=== PATIENT | male | born 1960 | race Caucasian/White ===

== ENCOUNTER 2016-11-02 13:26 | Emergency (ER) | payer MEDICARE, MEDICAID | END 2016-11-02 15:43 | disposition home or self-care (01) | DX: L03.113 Cellulitis of right upper limb (principal); E11.9 Type 2 diabetes mellitus without complications; I10 Essential (primary) hypertension; B20 Human immunodeficiency virus [HIV] disease; Z79.4 Long term (current) use of insulin; F17.200 Nicotine dependence, unspecified, uncomplicated ==

== ENCOUNTER 2021-02-18 13:00 | Outpatient (CLI) | payer MEDICARE, MEDICAID | END 2021-02-18 13:01 | disposition home or self-care (01) | LOC: LAB 13:00 | PROVIDERS: ATTEND Family Medicine | DX: Z53.9 Procedure and treatment not carried out, unspecified reason (principal); N18.31 Chronic kidney disease, stage 3a ==

== ENCOUNTER 2021-02-21 11:30 | Outpatient (CLI) | payer MEDICARE, MEDICAID ==
[2021-02-21 11:56] LABS: BASOPHILS # (AUTO) 0.1 10^3/uL (0.0-0.1); BASOPHILS % (AUTO) 1.1 %; EOSINOPHILS # (AUTO) 0.1 10^3/uL (0.0-0.7); EOSINOPHILS % (AUTO) 1.9 %; HCT - HEMATOCRIT 44.5 % (42.0-52.0); HGB - HEMOGLOBIN 14.9 g/dL (14.0-18.0); LYMPHOCYTES % (AUTO) 35.6 %; MEAN CORPUSCULAR HEMOGLOBIN 29.3 pg (27.0-31.0); MEAN CORPUSCULAR HGB CONC 33.5 g/dL (32.0-36.0); MEAN CORPUSCULAR VOLUME 87.6 fL (80.0-94.0); MEAN PLATELET VOLUME 9.4 fL (7.4-11.4); MONOCYTES # (AUTO) 0.6 10^3/uL (0.0-1.0); MONOCYTES % (AUTO) 10.2 %; NEUTROPHILS # (AUTO) 2.9 10^3/uL (1.5-6.6); PLT - PLATELET COUNT 195 10^3/uL (130-450); RED BLOOD COUNT 5.08 10^6/uL (4.70-6.10); RED CELL DISTRIBUTION WIDTH 13.2 % (12.0-15.0); WHITE BLOOD COUNT 5.7 x10^3/uL (4.8-10.8)
[2021-02-21 12:01] LABS: BILIRUBIN,URINE NEGATIVE (NEGATIVE); GLUCOSE, URINE (UA) NEGATIVE (NEGATIVE); KETONES,URINE (UA) NEGATIVE (NEGATIVE); LEUKOCYTE ESTERASE, URINE NEGATIVE (NEGATIVE); NITRITE,URINE NEGATIVE (NEGATIVE); OCCULT BLOOD,URINE NEGATIVE (NEGATIVE); PROTEIN,URINE NEGATIVE (NEGATIVE); UROBILINOGEN,URINE 0.2 (NORMAL) E.U./dL (NORMAL)
[2021-02-21 12:06] LABS: CLARITY,URINE CLEAR (CLEAR)
[2021-02-21 12:16] LABS: CREATININE,URINE 59.9 mg/dL; MICROALBUMIN,URINE 0.6 mg/dL (0-300.0)
[2021-02-21 12:18] LABS: ALBUMIN 4.5 g/dL (3.2-5.5); ALBUMIN/GLOBULIN RATIO 1.5 (1.0-2.2); ALKALINE PHOSPHATASE 75 IU/L (42-121); ALT ALANINE AMINOTRANSFERASE 48 IU/L (10-60); AST ASPARTATE AMINOTRANSFERASE 50 IU/L (10-42); BILIRUBIN,TOTAL 1.1 mg/dL (0.2-1.0); BUN - BLOOD UREA NITROGEN 26 mg/dL (6-20); CALCIUM 9.2 mg/dL (8.5-10.3); CARBON DIOXIDE - CO2 26 mmol/L (21-32); CHLORIDE 104 mmol/L (101-111); CHOLESTEROL 125 mg/dL; CREATININE 1.3 mg/dL (0.6-1.2); GFR - MDRD 57 (>89); GLUCOSE 96 mg/dL (70-100); HDL CHOLESTEROL 41 mg/dL; LDL CHOLESTEROL,CALCULATED 30 mg/dL; LDL/HDL RATIO 0.7 (<3.6); POTASSIUM 4.1 mmol/L (3.5-5.0); SODIUM 138 mmol/L (135-145); TOTAL PROTEIN 7.5 g/dL (6.7-8.2); TRIGLYCERIDES 272 mg/dL; VLDL CHOLESTEROL 54 mg/dL
[2021-02-21 12:35] LABS: ESTIMATED AVERAGE GLUCOSE 128 mg/dL (70-100); HEMOGLOBIN A1c% 6.1 % (4.27-6.07)
[2021-02-25 15:56] LABS: HIV AG/AB 4TH GEN REPEATEDLY REACTIVE (NON-REACTIVE)
== END 2021-02-21 11:31 | disposition home or self-care (01) ==
LOC: LAB 11:30
PROVIDERS: ATTEND Internal Medicine
DX: E11.40 Type 2 diabetes mellitus with diabetic neuropathy, unspecified (principal); E11.22 Type 2 diabetes mellitus with diabetic chronic kidney disease; I12.9 Hypertensive chronic kidney disease with stage 1 through stage 4 chronic kidney disease, or unspecified chronic kidney disease; N18.31 Chronic kidney disease, stage 3a; Z79.4 Long term (current) use of insulin; B20 Human immunodeficiency virus [HIV] disease
CPT/HCPCS: 36415; 80053; 80061; 81001; 81003; 82043; 82570; 83036; 83721; 85025; 86592; 87086; 87389

== ENCOUNTER 2021-02-21 11:41 | Outpatient (CLI) | payer MEDICARE, MEDICAID ==
--- NOTE | 2021-02-21 13:13 | XRAY Report ---
PROCEDURE: Elbow 3 View RT INDICATIONS: INJURY OF RIGHT ELBOW TECHNIQUE: 3 views of the elbow were acquired. COMPARISON: None FINDINGS: Bones: No fractures or dislocations. No suspicious bony lesions. Soft tissues: No elbow joint effusion. No suspicious soft tissue calcifications. IMPRESSION: No elbow fracture or dislocation. No significant joint effusion. Reviewed by: Mannie Santiago MD on 02/21/2021 1:12 PM PDT Approved by: Mannie Santiago MD on 02/21/2021 1:12 PM PDT Station ID: [id number]
== END 2021-02-21 11:42 | disposition home or self-care (01) ==
LOC: DI 11:41
PROVIDERS: ATTEND Internal Medicine
DX: S59.901A Unspecified injury of right elbow, initial encounter (principal); E11.40 Type 2 diabetes mellitus with diabetic neuropathy, unspecified; E11.22 Type 2 diabetes mellitus with diabetic chronic kidney disease; I12.9 Hypertensive chronic kidney disease with stage 1 through stage 4 chronic kidney disease, or unspecified chronic kidney disease; N18.31 Chronic kidney disease, stage 3a; Z79.4 Long term (current) use of insulin; B20 Human immunodeficiency virus [HIV] disease
CPT/HCPCS: 36415; 73080; 80053; 80061; 81003; 82043; 82570; 83036; 85025; 86592; 86701; 86702; G0475; 81001; 83721; 87086; 87389

== ENCOUNTER 2021-03-03 13:26 | Outpatient (CLI) | payer MEDICARE, MEDICAID | END 2021-03-03 13:27 | disposition home or self-care (01) | LOC: LAB 13:26 | PROVIDERS: ATTEND Internal Medicine | DX: B20 Human immunodeficiency virus [HIV] disease (principal) | CPT/HCPCS: 36415; 81599; 87536 ==

== ENCOUNTER 2021-03-25 09:57 | Outpatient (CLI) | payer MEDICARE, MEDICAID | END 2021-03-25 09:58 | disposition home or self-care (01) | LOC: LAB 09:57 | PROVIDERS: ATTEND Internal Medicine | DX: N52.9 Male erectile dysfunction, unspecified (principal) | CPT/HCPCS: 36415; 81599; 84402; 84403 ==

== ENCOUNTER 2022-06-24 07:50 | Outpatient (CLI) | payer MEDICARE, MEDICAID ==
--- NOTE | 2022-06-24 13:24 | Ultrasound Report ---
PROCEDURE: Duplex Ext Veins Left INDICATIONS: LEFT LOWER EXTREMITY EDEMA TECHNIQUE: Real-time imaging, as well as color and pulse Doppler interrogation, were performed of the lower extr emity deep veins from the inguinal ligament to the popliteal fossa. COMPARISON: None. FINDINGS: The deep veins are normally compressible, and free of intraluminal thrombus. Color and pu lse Doppler demonstrate normal phasic intraluminal flow. There is normal augmentation response to di stal compression maneuver. Patient-indicated area of concern corresponds to the tibialis anterior ten don. IMPRESSION: 1.No sonographic evidence of deep venous thrombosis in the left lower extremity. 2.Patient-indicated area of concern corresponds to the tibialis anterior tendon. Reviewed by: Isacc Chaidez MD on 06/24/2022 1:23 PM PDT Approved by: Isacc Chaidez MD on 06/24/2022 1:23 PM PDT Station ID: [id number]
== END 2022-06-24 07:51 | disposition home or self-care (01) ==
LOC: DI 07:50
PROVIDERS: ATTEND Internal Medicine
DX: R60.0 Localized edema (principal)

== ENCOUNTER 2023-08-06 07:10 | Emergency (ER) | payer MEDICARE, MEDICAID ==
--- NOTE | 2023-08-06 07:31 | ED Physician Documentation ---
PD HPI SKIN - Stated complaint Stated Complaint: BILAT LEG/ARM LUMPS - Chief complaint Chief Complaint: Wound - History obtained from History obtained from: Patient - History of Present Illness Timing - onset: How many days ago (few) Timing - duration: Days (few) Timing - details: Gradual onset, Still present Location: Other (dorsal aspects of arms and legs, gradual developent of multiple firm mildly tnder discrete lumps.) Quality / character: Itchy (he did states some itchiness to the areas.), Painful Associated symptoms: No: Fever, Myalgias, Joint pain, Facial swelling, Dyspnea Contributing factors: Exposed to medication (Augmentin and Doxycycline.) Similar symptoms before: Has not had sx before Recently seen: Emergency Dept (12 days ago for cellulitis right lower leg, on abx, and had US at the time that was negative for DVT.) Review of Systems Constitutional: denies: Fever, Chills Throat: denies: Sore throat Respiratory: denies: Dyspnea, Wheezing GI: denies: Abdominal Pain, Nausea, Vomiting, Diarrhea Musculoskeletal: denies: Joint pain PD PAST MEDICAL HISTORY - Past Medical History Cardiovascular: Hypertension Endocrine/Autoimmune: Type 2 diabetes GI: GERD : Kidney stones - Past Surgical History Past Surgical History: Yes General: Cholecystectomy HEENT: Other - Present Medications Home Medications: Ambulatory Orders Medication Instructions Recorded Confirmed buPROPion [Wellbutrin Sr] 150 mg PO DAILY 06/01/14 02/27/15 busPIRone [Buspar] 5 mg PO BID 02/27/15 02/27/15 Amox/Clav 875/125 [Augmentin] 1 each PO Q12H #14 tablet 11/02/16 Insulin Aspart [NovoLOG] 0 units SUBQ Q4HR 11/02/16 11/02/16 Insulin Glargine [Lantus] 80 unit SUBQ DAILY 11/02/16 11/02/16 Amox/Clav 875/125 [Augmentin] 1 tab PO Q12H #20 tablet 07/24/23 Doxycycline Monohydrate 100 mg PO BID #20 cap 07/24/23 cephALEXin [Keflex] 500 mg PO TID #20 cap 08/06/23 - Allergies Allergies/Adverse Reactions: Allergies Allergy/AdvReac Type Severity Reaction Status Date / Time No Known Drug Allergies Allergy Verified 11/02/16 13:37 - Social History Does the pt smoke?: Yes Smoking Status: Current every day smoker Does the pt drink ETOH?: Yes Does the pt have substance abuse?: No - Immunizations Immunizations are current?: Yes - POLST Patient has POLST: No PD ED PE NORMAL - Vitals Vital signs reviewed: Yes - General General: Alert and oriented X 3, No acute distress, Well developed/nourished - HEENT HEENT: Pharynx benign - Abdomen Abdomen: Soft, Non tender - Derm Derm: Normal color, Warm and dry, Other (right lower leg with redness and swelling anteriomedial mainly without skin ulcerations nor drainage. presumed still cellulitis. ) - Extremities Extremities: Other (The patient has slightly tender 1 to 2 cm demarcated subcutaneous firm areas without fluctuance. No overlying redness nor skin lesions. They are on the dorsal aspect of both forearms and thighs and shins. None on the volar aspects. Bedside ultrasound showed them to be fatty tissue, no fluid/node) Results - Vitals Vitals: Vital Signs - 24 hr 08/06/23 08/06/23 07:20 08:53 Temperature 36.7 C 36.7 C Heart Rate 88 79 Respiratory 16 17 Rate Blood Pressure 144/77 H 144/83 H O2 Saturation 99 98 Oxygen O2 Source Room air - Labs Labs: Laboratory Tests 08/06/23 08/06/23 08/06/23 09:01 09:01 09:01 WBC 9.8 RBC 5.33 Hgb 15.0 Hct 46.4 MCV 87.1 MCH 28.1 MCHC 32.3 RDW 13.5 Plt Count 287 MPV 9.1 Neut # (Auto) 6.4 Lymph # (Auto) 2.3 [place] # (Auto) 0.8 Eos # (Auto) 0.2 Baso # (Auto) 0.1 Absolute Nucleated RBC 0.00 Nucleated RBC % 0.0 ESR 6 Sodium Potassium Chloride Carbon Dioxide Anion Gap BUN Creatinine Estimated GFR (MDRD) Glucose Calcium Rheumatoid Factor NEGATIVE 08/06/23 09:01 WBC RBC Hgb Hct MCV MCH MCHC RDW Plt Count MPV Neut # (Auto) Lymph # (Auto) [place] # (Auto) Eos # (Auto) Baso # (Auto) Absolute Nucleated RBC Nucleated RBC % ESR Sodium 138 Potassium 4.2 Chloride 105 Carbon Dioxide 24 Anion Gap 9.0 BUN 15 Creatinine 1.2 Estimated GFR (MDRD) 62 L Glucose 163 H Calcium 9.4 Rheumatoid Factor PD Medical Decision Making - ED course Complexity details: reviewed results (initial RF is negative, and ESR is only 6. CBC is good. Lupus tests sendout and are pending. ) ED course: The patient has developed tender swollen lumps under the skin over the last couple of days. He had been seen and treated for right lower leg cellulitis on 07/24/2023 which was 12 days ago. He had no areas of drainage and no firm areas at that time. He had swelling in redness of the lower leg on the right side. He had an ultrasound done that was negative. He was treated for cellulitis with both doxycycline and Augmentin twice daily for 10 days. He finished them 2 days ago. Prior to finishing those he had had some improvement in the redness of the right lower leg but not resolution. He also had started with some areas of tenderness in the forearms that have increased. He has now multiple areas of lumpy tenderness on the dorsal aspects of both forearms and thighs. None on the trunk. No redness in those areas. No open sores or drainage. He states he is feeling okay otherwise without any fevers, chills, joint aches, sore throat. The areas are tender nodule feeling under the skin that are freely movable from the muscle underneath. There are none on the volar aspects. No redness overlying and no open sores. He does not have any inguinal nor axillary nor cervical adenopathy. Throat is without any redness nor exudate. The right lower leg still shows redness along the anterior and mainly medial aspects without any sores or pustules. No drainage. It is moderately red and still consistent with cellulitis. Its not clear the reason for the nodules on the extremities. He has not had strep throat. I referenced up-to-date and there is no association of rheumatic fever with skin strep infections such as cellulitis. The medications antibiotics he was taking could both have potential angioedema or allergic reactions but he has no swelling in the lips tongue or throat. This would be an unusual presentation of angioedema that I have not really seen before. Otherwise referencing up-to-date, an illness or such could precipitate an underlying autoimmune process such as rheumatoid or lupus and the nodularity could be associated with that. I did ultrasound several of the spots and they are just light lipomatous without any fluid collection. They do not appear pustules nor lymph nodes. I did order some blood test to screen for autoimmune disorders such as rheumatoid and lupus. More likely is a variant angioedema type reaction presumably to 1 or both of the antibiotics. Since he still has a cellulitis despite the antibiotics, I would not continue either of them but change perhaps to cephalexin. This would look more like a strep type cellulitis rather than staph. Departure - Departure Disposition: 01 Home, Self Care Clinical Impression: Subcutaneous nodules, generalized, Cellulitis of lower leg Condition: Stable Record reviewed to determine appropriate education?: Yes Instructions: ED Infec Skin Cellulitis Follow-Up: ONI RAMIREZ MD [Primary Care Provider] - Prescriptions: cephALEXin [Keflex] 500 mg PO TID #20 cap Comments: The timing of the nodule development related to your skin infection on the leg and also the antibiotics makes it most likely to be either a immune reaction or manifestation related to the cellulitis or possibly an allergic reaction (very atypical) to one of the antibiotics. Since you are finished with the antibiotics, then 1 would anticipate this resolving slowly over the next several days to week or so. Your leg redness and cellulitis has not completely resolved so I would try a different antibiotic called cephalexin 3 times daily for a week and see if that improves the leg redness. The redness in the leg along with the nodules could potentially be a manifestation of an autoimmune process such as lupus or rheumatoid. I did order some blood test to evaluate for these. They are send outs so will not result for a day or 2 likely. We will call you with the results as they come in. You can also follow-up with the results either having your primary care office track them or you can look them up through the patient portal. Recheck or follow-up if you are having development of more symptoms such as fever or rash or lymph nodes which would be classically more in the groin or armpit areas. On ultrasound these appear to be fatty tissue inflammation and not lymph nodes nor abscesses so would not relate to spreading of infection per se and would not correlate with like cat scratch fever etc. I sent your prescription to the [facility] pharmacy. Forms: PCP List Discharge Date/Time: 08/06/23 09:03
[2023-08-06] MEDS ORDERED: cephALEXin 250 MG CAPSULE PO STA (08:28)
[2023-08-06 08:55] VITALS: BP 144/83; O2SAT 98
[2023-08-06 09:08] LABS: BASOPHILS # (AUTO) 0.1 10^3/uL (0.0-0.1); EOSINOPHILS # (AUTO) 0.2 10^3/uL (0.0-0.7); EOSINOPHILS % (AUTO) 1.9 %; HCT - HEMATOCRIT 46.4 % (42.0-52.0); LYMPHOCYTES # (AUTO) 2.3 10^3/uL (1.5-3.5); LYMPHOCYTES % (AUTO) 23.5 %; MEAN CORPUSCULAR HEMOGLOBIN 28.1 pg (27.0-31.0); MEAN CORPUSCULAR HGB CONC 32.3 g/dL (32.0-36.0); MEAN CORPUSCULAR VOLUME 87.1 fL (80.0-94.0); MEAN PLATELET VOLUME 9.1 fL (7.4-11.4); MONOCYTES # (AUTO) 0.8 10^3/uL (0.0-1.0); MONOCYTES % (AUTO) 8.2 %; NEUTROPHILS # (AUTO) 6.4 10^3/uL (1.5-6.6); NEUTROPHILS % (AUTO) 65.2 %; PLT - PLATELET COUNT 287 10^3/uL (130-450); RED BLOOD COUNT 5.33 10^6/uL (4.70-6.10); RED CELL DISTRIBUTION WIDTH 13.5 % (12.0-15.0); WHITE BLOOD COUNT 9.8 x10^3/uL (4.8-10.8)
[2023-08-06 09:20] LABS: CALCIUM 9.4 mg/dL (8.5-10.3); CREATININE 1.2 mg/dL (0.6-1.3); POTASSIUM 4.2 mmol/L (3.5-4.5)
[2023-08-06 11:37] LABS: RHEUMATOID FACTOR NEGATIVE (Negative)
[2023-08-07 19:07] LABS: ANTI-DNA (DS) AB QN 1 IU/mL (0-9); CENTROMERE B ANTIBODIES <0.2 AI (0.0-0.9); CHROMATIN ANTIBODIES <0.2 AI (0.0-0.9); JO-1 AB <0.2 AI (0.0-0.9); RIBOSOMAL P ANTIBODIES <0.2 AI (0.0-0.9); RNP ANTIBODIES <0.2 AI (0.0-0.9); SCLERODERMA-70 ANTIBODIES <0.2 AI (0.0-0.9); SJOGREN'S ANTI-SS-A <0.2 AI (0.0-0.9); SJOGREN'S ANTI-SS-B <0.2 AI (0.0-0.9); SMITH ANTIBODIES <0.2 AI (0.0-0.9); SMITH/RNP ANTIBODIES <0.2 AI (0.0-0.9)
== END 2023-08-06 09:03 | disposition home or self-care (01) ==
LOC: ED 07:10
DX: R22.33 Localized swelling, mass and lump, upper limb, bilateral (principal); R22.43 Localized swelling, mass and lump, lower limb, bilateral; L03.115 Cellulitis of right lower limb; F17.200 Nicotine dependence, unspecified, uncomplicated
CPT/HCPCS: 36415; 80048; 83516; 85025; 85651; 86060; 86225; 86235; 86430; 99283; 99284; A9270

== ENCOUNTER 2023-11-25 05:45 | Day surgery (SDC) | payer MEDICARE, MEDICAID ==
[2023-11-25] MEDS ORDERED: PHENYLEPHRINE 2.5% OPHTH 2 ML DROPS ONE (06:08)
[2023-11-25] MEDS ORDERED: KETOROLAC 0.45% OPHTH DROPS ONE (06:08)
[2023-11-25] MEDS ORDERED: PROPARACAINE 0.5% OPHTH DROPS 15 ML ONE (06:09)
[2023-11-25] MEDS: LACTATED RINGERS 1,000 ML IV ONE (06:20)
[2023-11-25] MEDS: CYCLOPENTOLATE 1% OPHTH DROPS 2 ML RIGHTEYE ONE (06:45)
[2023-11-25] MEDS: PHENYLEPHRINE 2.5% OPHTH 2 ML DROPS RIGHTEYE ONE (06:45)
[2023-11-25] MEDS: PHENYLEPHRINE 2.5% OPHTH 2 ML DROPS LEFTEYE ONE (06:45)
[2023-11-25] MEDS: KETOROLAC 0.45% OPHTH DROPS RIGHTEYE ONE (06:45)
[2023-11-25] MEDS: CYCLOPENTOLATE 1% OPHTH DROPS 2 ML LEFTEYE ONE (06:45)
[2023-11-25] MEDS ORDERED: BRIMONIDINE 0.2% OPHTH DROPS 5 ML ONE (06:55)
[2023-11-25] MEDS ORDERED: TIMOLOL 0.5% OPHTH DROPS ONE (06:55)
[2023-11-25] MEDS ORDERED: EPINEPHrine 1 MG/ML AMP ONE (06:55)
[2023-11-25] MEDS ORDERED: TRIAMCIN/MOXIFLOX OPHTHALMIC 0.6 ML VIAL IO ONE (06:55)
[2023-11-25] MEDS ORDERED: BSS/LIDOCAINE/EPINEPHRINE 1 ML VIAL ONE (06:56)
--- NOTE | 2023-11-25 07:11 | ANESTHESIA ---
Pre-Anesthesia VS, & Labs - Diagnosis right senile cataract - Procedure right cataract extraction with IOL Vital Signs: Temp Pulse Resp BP Pulse Ox O2 Flow Rate 37.0 C 82 14 145/80 H 99 11/25/23 06:20 11/25/23 06:20 11/25/23 06:20 11/25/23 06:20 11/25/23 06:20 Height: 6 ft Weight (kg): 94.1 kg Body Mass Index: 28.1 BMI Classification: Overweight - NPO >8 hours - Lab Results Current Lab Results: Laboratory Tests 11/25/23 06:34: POC Whole Bld Glucose 207 H Home Medications and Allergies buPROPion [Wellbutrin Sr] 150 mg PO DAILY 06/01/14 busPIRone [Buspar] 5 mg PO BID 02/27/15 Insulin Aspart [NovoLOG] 0 units SUBQ Q4HR 11/02/16 Insulin Glargine [Lantus] 80 unit SUBQ DAILY 11/02/16 Allergies/Adverse Reactions: Allergies Allergy/AdvReac Type Severity Reaction Status Date / Time No Known Drug Allergies Allergy Verified 11/02/16 13:37 Anes History & Medical History - Anesthetic History Anesthesia Complications: reports: No previous complications - Medical History Cardiovascular: reports: None Pulmonary: reports: None Gastrointestinal: reports: Colon polyps, Cholelithiasis Urinary: reports: Other Musculoskeletal: reports: Osteoarthritis Endocrine/Autoimmune: reports: Type 2 diabetes Blood Disorders: reports: HIV/AIDS Skin: reports: None Smoking Status: Former smoker - Surgical History General: reports: Cholecystectomy, Colonoscopy Eyes Ears Nose Throat (EENT): reports: Other Exam General: Alert, Oriented x3 Dental: WNL Mouth Opening: Greater than 4 Fingerbreadths Neck Mobility: Normal Mallampati classification: III Respiratory: Lungs clear Cardiovascular: Regular rate Plan Anesthesia Type: MAC Consent for Procedure(s) Verified and Reviewed: Yes Code Status: Attempt Resuscitation ASA classification: 3-Severe systemic disease Is this case an emergency?: No
[2023-11-25] MEDS ORDERED: MIDAZOLAM 2 MG/2 ML VIAL ONE (07:17)
[2023-11-25] MEDS ORDERED: fentaNYL 100 MCG/2 ML VIAL ONE (07:25)
[2023-11-25] MEDS: BRIMONIDINE 0.2% OPHTH DROPS 5 ML OPTH ONE (07:27)
[2023-11-25] MEDS: VANCOMYCIN OPHTH (TOPICAL) 10 MG/ML SYRINGE TOP ONE (07:28)
[2023-11-25] MEDS: TRIAMCIN/MOXIFLOX OPHTHALMIC 0.6 ML VIAL IO ONE (07:28)
[2023-11-25] MEDS: PROPARACAINE 0.5% OPHTH DROPS 15 ML EACHEYE ONE (07:28)
[2023-11-25] MEDS: BSS/LIDOCAINE/EPINEPHRINE 1 ML SYRINGE IO ONE (07:28)
[2023-11-25] MEDS: TIMOLOL 0.5% OPHTH DROPS OPTH ONE (07:28)
[2023-11-25] MEDS: EPINEPHrine 1 MG/ML AMP IR ONE (07:28)
[2023-11-25] MEDS: PROPARACAINE 0.5% OPHTH DROPS 15 ML LEFTEYE ONE (07:41)
[2023-11-25] MEDS: PROPARACAINE 0.5% OPHTH DROPS 15 ML RIGHTEYE ONE (07:41)
[2023-11-25] MEDS: LACTATED RINGERS 500 ML IV ONE (07:45)
[2023-11-25 07:48] VITALS: O2SAT 98
--- NOTE | 2023-11-25 07:54 | OPERATIVE REPORT ---
Operative Report - Other Other Information/Narrative: Date of Surgery: 11/25/23 Preop Dx: Visually significant cataract right eye. This was the first cataract surgery. Postop Dx: Same Procedure: Phacoemulsification with posterior chamber intraocular lens implant right eye Surgeon: Dr. Chapin Angela Anesthesia: Monitored anesthesia care Complications: None Operative Indications: This is a 63-year-old M with progressive vision loss in the right eye due to 2+ nuclear sclerotic and 2+ posterior subcapsular cataract. Best corrected visual acuity was 20/40 with glare to 20/70 vision in the right eye. Indications for surgery were: - Overall decrease in vision - Difficulty seeing words on a computer screen - Difficulty reading - Difficulty seeing words, closed captions, or game scores on TV - Difficulty seeing street signs - Difficulty driving in low light or at night - Difficulty driving at night because of headlights from other vehicles - Difficulty with glare or bright lights in any situation The patient was consented at length concerning the risks and benefits of cataract surgery after which the patient expressed a desire to proceed with surgery. Operative Procedure: The patient was taken into OR#3 and placed under monitored anesthesia care. A surgical time-out was conducted confirming correct patient, correct procedure, and correct surgical site. The patient was given topical anesthesia and then prepped and draped in the usual sterile fashion. The eye was entered at the 6 and 3 oclock positions. Intracameral Shugarcaine was injected into the anterior chamber followed by a dispersive viscoelastic. A continuous-tear curvilinear capsulorhexis was performed. The nucleus was hydrodissected and phacoemulsified. The cortex was evacuated using automated infusion and aspiration. A cohesive viscoelastic was injected into the capsular bag and a 23.5 diopter intraocular lens was inserted into the bag. Infusion and aspiration were used to evacuate the viscoelastic materials from the eye. The wounds were hydrated and the eye inflated to physiologic pressure using balanced salt solution. Approximately 0.25ml of a mixture of triamcinolone and moxifloxacin was injected trans-sclerally into the vitreous in the inferotemporal quadrant using a 30 gauge cannula. An additional 0.25ml of a mixture of triamcinolone and moxifloxacin was injected subconjunctivally in the superior quadrant for infection and inflammation prophylaxis. Wound integrity was checked with Weck-Yen sponges. The patient was taken from the operating room in good condition and given post-op instructions.
[2023-11-25 08:08] VITALS: BP 129/88
--- NOTE | 2023-11-25 08:11 | ANESTHESIA POST OP EVALUATION ---
Anesthesia Post Eval - Post Anesthesia Eval Vitals: Last Vital Signs Temp 36.4 C L 11/25/23 08:00 Pulse 74 11/25/23 08:00 Resp 16 11/25/23 08:00 BP 129/88 H 11/25/23 08:00 Pulse Ox 98 11/25/23 08:00 O2 Flow Rate CV Function Including HR & BP: Stable Pain Control: Satisfactory Nausea & Vomiting: Negative Mental Status: Baseline Respiratory Status: Airway Patent Hydration Status: Satisfactory Anesthesia Complications: None
== END 2023-11-25 05:46 | disposition home or self-care (01) ==
LOC: SDS 05:45
PROVIDERS: ATTEND Ophthalmology
DX: E11.36 Type 2 diabetes mellitus with diabetic cataract (principal); H25.811 Combined forms of age-related cataract, right eye; E11.22 Type 2 diabetes mellitus with diabetic chronic kidney disease; I12.9 Hypertensive chronic kidney disease with stage 1 through stage 4 chronic kidney disease, or unspecified chronic kidney disease; N18.30 Chronic kidney disease, stage 3 unspecified; Z79.4 Long term (current) use of insulin
CPT/HCPCS: 66984; A9270; J3490; J7120